=== PATIENT | female | born 1950 | race Caucasian/White ===

== ENCOUNTER 2017-06-23 20:09 | Emergency (ER) | payer MEDICARE ==
[2017-06-23 21:46] LABS: BASO # 0.1 10^3/uL (0.0-0.2); BASO % 0.7 % (0.0-1.0); EOS # 0.1 10^3/uL (0.0-0.50); EOS % 1.6 % (0.0-3.0); HEMATOCRIT 44.7 % (36.0-47.0); HEMOGLOBIN 15.6 g/dl (12.0-16.0); IMMATURE GRANULOCYTE % 0.2 % (0-3.0); LYMPH # 1.8 10^3/uL (1.5-4.5); LYMPH % 20.4 % (24.0-44.0); MEAN CORPUSCULAR HEMOGLOBIN 31.6 pg (27.0-33.0); MEAN CORPUSCULAR HGB CONC 34.9 g/dl (32.0-36.5); MEAN CORPUSCULAR VOLUME 90.7 fl (80.0-96.0); MONO # 0.6 10^3/uL (0.0-0.8); NEUTROPHILS # 6.3 10^3/uL (1.8-7.7); NEUTROPHILS % 70.1 % (36.0-66.0); PLATELET COUNT, AUTOMATED 199 10^3/uL (150-450); RED BLOOD COUNT 4.93 10^6/uL (4.00-5.40); RED CELL DISTRIBUTION WIDTH 12.8 % (11.5-14.5)
[2017-06-23 22:07] LABS: ANION GAP 7 MEQ/L (8-16); BLOOD UREA NITROGEN 21 MG/DL (7-18); CALCIUM LEVEL 9.2 MG/DL (8.8-10.2); CARBON DIOXIDE LEVEL 29 MEQ/L (21-32); CHLORIDE LEVEL 105 MEQ/L (98-107); CREATININE FOR GFR 0.78 MG/DL (0.55-1.30); GLOMERULAR FILTRATION RATE > 60.0 (>45); GLUCOSE, FASTING 97 MG/DL (70-100); POTASSIUM SERUM 3.7 MEQ/L (3.5-5.1); SODIUM LEVEL 141 MEQ/L (136-145)
[2017-06-23] MEDS ORDERED: ISOVUE-370 76% 100ML VIAL (Q9967) As Ordered (22:36)
== END 2017-06-24 02:29 | disposition home or self-care (01) ==
LOC: M ED 06-24 02:29
DX: R07.89 Other chest pain (principal); N28.1 Cyst of kidney, acquired; K76.89 Other specified diseases of liver; K86.2 Cyst of pancreas; R91.1 Solitary pulmonary nodule; E11.9 Type 2 diabetes mellitus without complications; I10 Essential (primary) hypertension; Z79.899 Other long term (current) drug therapy; Z79.84 Long term (current) use of oral hypoglycemic drugs; Z88.2 Allergy status to sulfonamides
CPT/HCPCS: Q9967

== ENCOUNTER → 2017-07-19 | Outpatient (CLI) | payer MEDICARE ==
[~2017-07-19] MED LIST: PROHANCE 279.3MG/ML 15ML VIAL (A9576) As Ordered; PROHANCE 279.3MG/ML 5ML VIAL (A9576) As Ordered
== END ==
LOC: M RAD 08:43
DX: D37.8 Neoplasm of uncertain behavior of other specified digestive organs (principal)
CPT/HCPCS: A9576

== ENCOUNTER → 2019-08-28 | Outpatient (CLI) | payer MEDICARE ==
[~2019-08-28] MED LIST changes: +ALTA1CAP4 PO; +ISOVUE-370 76% 100ML VIAL As Ordered ONE; +METF500T13 PO; +METO1TAB7 PO; -PROHANCE 279.3MG/ML 15ML VIAL (A9576) As Ordered; -PROHANCE 279.3MG/ML 5ML VIAL (A9576) As Ordered; +SIMV40TA20 PO
--- NOTE | 2019-08-28 15:23 | REP ---
CT CHEST WITH IV CONTRAST: TECHNIQUE: Axial contrast enhanced images from the thoracic inlet to the upper abdomen using 100 mL Isovue-370 intravenous contrast material with multiplanar reformations. COMPARISON: 06/30/2018 and . Once again there are two small linear scars along the right major fissure just below the level of the right hilum. No new suspicious nodule is seen bilaterally. Chronic atelectatic change is seen in the left lower lobe due to a very large hiatal hernia. There is no evidence of mediastinal, hilar or chest wall lymphadenopathy. There is no pleural or pericardial effusion. The heart is normal in size. Thoracic aorta is normal in caliber with no aneurysm or dissection. Multiple innumerable cysts are seen throughout the liver and visualized kidneys. There is a small cyst in the body of the pancreas anteriorly 7 mm in diameter since the prior CT of the abdomen 06/24/2017. There are diffuse degenerative changes of the spine. IMPRESSION: Two stable linear scars along the right major fissure with no suspicious nodular opacity in either lung. Chronic atelectatic change left lower lobe due to very large hiatal hernia. Multiple innumerable liver and renal cysts. Small stable cyst anterior body of the pancreas. Electronically Signed by Josue Walker MD 08/28/2019 04:24 P
== END ==
LOC: M RAD 14:06
PROVIDERS: ATTEND Family Medicine
DX: R91.1 Solitary pulmonary nodule (principal); R06.02 Shortness of breath
CPT/HCPCS: 71260; Q9967

== ENCOUNTER → 2019-12-19 | Outpatient (CLI) | payer MEDICARE ==
[~2019-12-19] MED LIST changes: -ISOVUE-370 76% 100ML VIAL As Ordered ONE; +METHACHOLINE KIT (J7674) INH ONE
--- NOTE | 2019-12-28 11:48 | PFTRPT ---
Height: 60.00 Inches Weight: 136.00 Lbs BSA: 1.58 Diagnosis: R06.00 DATE: 12/19/2019 ORDERED BY: Humberto Dorsey M.D. QUALITY: Study of excellent technical quality. PROCEDURE: Under protocol, methacholine was administered. With a dose of 2.5 mg or 13.875 CDUs, a 22% decline of the FEV1 was noted. PC of 1.86 is significant. Flow rates did return to baseline post-bronchodilator administration. IMPRESSION: Positive methacholine challenge study. MTDD
== END ==
LOC: M CARPUL 13:33
PROVIDERS: ATTEND Physician Assistant
DX: R06.00 Dyspnea, unspecified (principal)
CPT/HCPCS: 94070; 95070; J7674

== ENCOUNTER → 2020-07-29 | Outpatient (CLI) | payer MEDICARE ==
[~2020-07-29] MED LIST changes: -METHACHOLINE KIT (J7674) INH ONE; +PROHANCE 279.3MG/ML 15ML VIAL As Ordered ONE
--- NOTE | 2020-07-29 13:09 | REP ---
INDICATION: NEOPLASM OF UNCERTAIN BEHAVIOR LIVER. COMPARISON: 08/04/2018. TECHNIQUE: Multiple sequences obtained in the axial coronal planes prior to and following the intravenous administration of 11 mL ProHance. FINDINGS: Once again there is a large hiatal hernia noted. Multiple innumerable hepatic cysts are again noted. None of these demonstrate suspicious enhancement. The largest is inferiorly in the right lobe, mildly increased in size compared to the prior study, having a maximum diameter of 6.4 cm. The spleen is normal in size with no intrinsic abnormality. The adrenal glands are normal. Two pancreatic cysts are again seen unchanged. These demonstrate no suspicious internal enhancement. One of the cysts in the head of the pancreas and is somewhat exophytic, measuring 1 cm in diameter. The other is a 7 mm cyst in the body of the pancreas. There is no pancreatic duct dilatation. Multiple cysts are again seen throughout both kidneys. Some demonstrate hypointensity on T2 and hyperintensity on T1 consistent with proteinaceous or hemorrhagic cysts. Some of the cysts have mildly increased in size since the prior study. The largest on the right is in the lower pole measuring 2.3 cm in diameter. There is no hydronephrosis bilaterally. No adenopathy or free fluid is seen in the abdomen. The gallbladder is collapsed. There is no biliary dilatation. IMPRESSION: Multiple cysts again seen in the liver, pancreas and kidneys as discussed in detail above. No suspicious enhancing mass. <Electronically signed by Josue Walker > 07/29/20 [id number]
== END ==
LOC: M RAD 11:07
PROVIDERS: ATTEND Nurse Practitioner Family
DX: D37.6 Neoplasm of uncertain behavior of liver, gallbladder and bile ducts (principal)
CPT/HCPCS: 74183; A9576

== ENCOUNTER → 2022-01-05 | Outpatient (CLI) | payer MEDICARE ==
[~2022-01-05] MED LIST changes: -PROHANCE 279.3MG/ML 15ML VIAL As Ordered ONE
== END ==
LOC: M RAD 06:22
PROVIDERS: ATTEND Family Medicine
DX: R10.11 Right upper quadrant pain (principal)

== ENCOUNTER → 2022-01-23 | Outpatient (CLI) | payer MEDICARE ==
[~2022-01-23] MED LIST changes: +PROHANCE 279.3MG/ML 15ML VIAL ONE
== END ==
LOC: M PLAIMG 13:03
PROVIDERS: ATTEND Family Medicine
DX: D37.6 Neoplasm of uncertain behavior of liver, gallbladder and bile ducts (principal)
CPT/HCPCS: 74183; A9576

== ENCOUNTER 2023-09-17 11:08 | Inpatient (IN) | payer MEDICARE ==
[~2023-09-17] VITALS: Ht 154.9 cm; Wt 60.2 kg
[~2023-09-17 11:08] MED LIST changes: -PROHANCE 279.3MG/ML 15ML VIAL ONE
[2023-09-17 14:08] LABS: BASO % 0.5 % (0.0-1.0); EOS % 0.5 % (0.0-3.0); HEMATOCRIT 48.4 % (36.0-47.0); HEMOGLOBIN 17.1 g/dl (12.0-15.5); LYMPH # 1.5 10^3/uL (1.5-5.0); LYMPH % 17.2 % (24.0-44.0); MEAN CORPUSCULAR HEMOGLOBIN 31.8 pg (27.0-33.0); MEAN CORPUSCULAR HGB CONC 35.3 g/dl (32.0-36.5); MEAN CORPUSCULAR VOLUME 90.1 fl (80.0-96.0); MONO # 0.7 10^3/uL (0.0-0.8); MONO % 7.6 % (2.0-8.0); NEUTROPHILS # 6.5 10^3/uL (1.5-8.5); NEUTROPHILS % 73.9 % (36.0-66.0); PLATELET COUNT, AUTOMATED 276 10^3/uL (150-450); RED BLOOD COUNT 5.37 10^6/uL (4.00-5.40); WHITE BLOOD COUNT 8.8 10^3/uL (4.0-10.0)
[2023-09-17 14:34] LABS: LIPASE 55 U/L (12-53)
[2023-09-17 14:37] LABS: ALBUMIN 3.9 G/DL (3.2-5.2); ALKALINE PHOSPHATASE 93 U/L (46-116); ALT/SGPT 29 U/L (7.0-40); AST/SGOT 16 U/L (<34); BILIRUBIN,DIRECT 0.4 MG/DL (<0.4); BILIRUBIN,TOTAL 1.4 MG/DL (0.3-1.2); TOTAL PROTEIN 6.8 G/DL (5.7-8.2)
[2023-09-17] MEDS ORDERED: ISOVUE-370 76% 100ML VIAL As Ordered ONE (14:38)
[2023-09-17] MEDS: NS 1,000 ML IV ONE (14:47)
[2023-09-17] MEDS: GASTROGRAFIN SOLUTION 30ML PO SCH (14:47)
[2023-09-17 18:08] LABS: C REACTIVE PROTEIN QUANTITATIV < 0.40 MG/DL (<1.0)
[2023-09-17 18:13] LABS: ERYTHROCYTE SEDIMENTATION RATE 4 mm/hr (0-30)
[2023-09-17] MEDS: NS 1,000 ML IV SCH (18:13)
[2023-09-17] MEDS: ACETAMINOPHEN *IV* 1,000 MG in IV 1 EA IV ONE (19:35)
[2023-09-17] MEDS: PANTOPRAZOLE 40MG VIAL IV ONE (20:19)
[2023-09-17] MEDS ORDERED: MORPHINE 2 MG/ML 1ML VIAL IV PRN (21:00)
[2023-09-17] MEDS ORDERED: DEXTROSE 50% 50ML SYRINGE IV PRN (21:00)
[2023-09-17] MEDS ORDERED: GLUCAGON INJ 1MG VIAL SC PRN (21:00)
[2023-09-17] MEDS: INSULIN LISPRO (NovoLOG) PER UNIT SC SCH (21:00)
[2023-09-17] MEDS ORDERED: GLUCOSE 4 GM CHEW PO PRN (21:00)
[2023-09-17] MEDS ORDERED: ONDANSETRON 4MG 2ML VIAL IV PRN (21:00)
[2023-09-17] MEDS ORDERED: CHEL50TA2 PO (21:03)
[2023-09-17] MEDS ORDERED: VIBE75TA PO (21:03)
[2023-09-17] MEDS ORDERED: FAMO1TAB11 PO (21:03)
[2023-09-17] MEDS ORDERED: CALC500C16 PO (21:03)
[2023-09-17] MEDS ORDERED: ASPI81TA26 PO (21:03)
[2023-09-17] MEDS ORDERED: ATOR80TA59 PO (21:03)
[2023-09-17] MEDS ORDERED: TRIA37.5 PO (21:03)
[2023-09-17] MEDS ORDERED: ARNU1INH INH (21:03)
[2023-09-17] MEDS ORDERED: VITA100093 PO (21:03)
[2023-09-17] MEDS ORDERED: ALLE180T33 PO (21:03)
[2023-09-17] MEDS ORDERED: RAMI10CA64 PO (21:03)
[2023-09-17] MEDS ORDERED: HOME MED LIST COMPLETE! XX SCH (21:10)
[2023-09-17] MEDS: POTASSIUM CHLORIDE 10MEQ SR TABLET PO ONE (21:24)
[2023-09-17] MEDS: KCL 20MEQ in NS 1000ML 1,000 ML IV SCH (21:24)
[2023-09-17] MEDS: CIPROFLOXACIN 400 MG in IV 1 EA IV SCH (21:25)
[2023-09-17] MEDS: FEXOFENADINE 60MG TAB PO SCH (23:16)
[2023-09-17 23:35] VITALS: BP 144/80; TEMP 97.5; O2SAT 97
[2023-09-18] MEDS: metroNIDAZOLE 500 MG in IV 1 EA IV SCH (00:03)
[2023-09-18] MEDS: ramipriL 5 MG CAP PO SCH (00:03)
[2023-09-18 04:58] VITALS: BP 125/62; TEMP 97.2; O2SAT 97
[2023-09-18 06:15] LABS: HEMATOCRIT 40.4 % (36.0-47.0); MEAN CORPUSCULAR HEMOGLOBIN 31.8 pg (27.0-33.0); MEAN CORPUSCULAR HGB CONC 34.9 g/dl (32.0-36.5); PLATELET COUNT, AUTOMATED 191 10^3/uL (150-450); RED BLOOD COUNT 4.44 10^6/uL (4.00-5.40); WHITE BLOOD COUNT 7.1 10^3/uL (4.0-10.0)
[2023-09-18 06:16] LABS: HEMOGLOBIN 14.1 g/dl (12.0-15.5)
[2023-09-18 06:36] LABS: BLOOD UREA NITROGEN 10 MG/DL (9-23); CALCIUM LEVEL 8.4 MG/DL (8.3-10.6); CARBON DIOXIDE LEVEL 24 MMOL/L (20-31); CHLORIDE LEVEL 104 MMOL/L (98-107); CREATININE FOR GFR 0.64 MG/DL (0.55-1.30); GLOMERULAR FILTRATION RATE > 60.0 (>39); GLUCOSE, FASTING 81 MG/DL (74-106); MAGNESIUM LEVEL 1.6 MG/DL (1.8-2.4); SODIUM LEVEL 137 MMOL/L (136-145)
[2023-09-18] MEDS: INSULIN LISPRO (NovoLOG) PER UNIT SC SCH (07:30)
[2023-09-18] MEDS: MAG SULF 1GM/100ML (MAG RUN) 1 GM in IV 1 EA IV ONE (08:05)
[2023-09-18] MEDS: NS 1,000 ML IV SCH (08:05)
[2023-09-18] MEDS: METOPROLOL SUCC (TopROL XL) 50MG **XL** TAB PO SCH (09:01)
[2023-09-18] MEDS: ATORVASTATIN 20 MG TAB PO SCH (09:01)
[2023-09-18 10:00] VITALS: BP 131/69; TEMP 97.9; O2SAT 95
[2023-09-18] MEDS: POLYETHYLENE GLYCOL (MIRALAX) 238GM BOTTLE PO ONE ×2 (13:05→17:28)
[2023-09-18 14:11] VITALS: BP 131/70; TEMP 97.9; O2SAT 97
[2023-09-18] MEDS ORDERED: FAMOTIDINE 20 MG TAB PO SCH (15:00)
[2023-09-18] MEDS: FAMOTIDINE 20 MG TAB PO SCH (20:48)
[2023-09-18 21:00] VITALS: BP 154/71; TEMP 97.7; O2SAT 97
[2023-09-19] VITALS (10 sets, daily range): BP systolic 134–159; BP diastolic 73–84; TEMP 96.8–97.9; O2SAT 93–99
[2023-09-19 06:25] LABS: RED BLOOD COUNT 4.31 10^6/uL (4.00-5.40); WHITE BLOOD COUNT 5.7 10^3/uL (4.0-10.0)
[2023-09-19 06:26] LABS: HEMATOCRIT 40.6 % (36.0-47.0); HEMOGLOBIN 13.7 g/dl (12.0-15.5); MEAN CORPUSCULAR HEMOGLOBIN 31.8 pg (27.0-33.0); MEAN CORPUSCULAR HGB CONC 33.7 g/dl (32.0-36.5); MEAN CORPUSCULAR VOLUME 94.2 fl (80.0-96.0); PLATELET COUNT, AUTOMATED 166 10^3/uL (150-450)
[2023-09-19 06:57] LABS: ALBUMIN 3.1 G/DL (3.2-5.2); ALKALINE PHOSPHATASE 68 U/L (46-116); ALT/SGPT 21 U/L (7.0-40); AST/SGOT 13 U/L (<34); BILIRUBIN,TOTAL 0.7 MG/DL (0.3-1.2); BLOOD UREA NITROGEN 6 MG/DL (9-23); CALCIUM LEVEL 8.1 MG/DL (8.3-10.6); CARBON DIOXIDE LEVEL 24 MMOL/L (20-31); CHLORIDE LEVEL 109 MMOL/L (98-107); CREATININE FOR GFR 0.63 MG/DL (0.55-1.30); GLOMERULAR FILTRATION RATE > 60.0 (>39); GLUCOSE, FASTING 82 MG/DL (74-106); POTASSIUM SERUM 3.8 MMOL/L (3.5-5.1); SODIUM LEVEL 139 MMOL/L (136-145)
[2023-09-19] MEDS ORDERED: propofoL 200 MG/20 ML VIAL As Ordered ONE (08:19)
[2023-09-19] MEDS ORDERED: LIDOCAINE 2% 100MG/5ML SDV (FOR ANES.) As Ordered ONE (08:19)
[2023-09-19] MEDS ORDERED: GLYCOPYRROLATE INJ 0.2 MG/ML 2 ML VIAL As Ordered ONE (08:48)
[2023-09-19] MEDS ORDERED: PHENYLephrine 500MCG 5ML (100MCG/ML) SYRINGE As Ordered ONE (09:03)
[2023-09-19] MEDS: LR 1,000 ML IV SCH (09:20)
[2023-09-19] MEDS ORDERED: ONDANSETRON 4MG 2ML VIAL IV PRN (09:20)
[2023-09-19] MEDS: ACETAMINOPHEN TAB 650MG DOSE (2X325MG) PO PRN (15:59)
[2023-09-20] VITALS: BP 141/79; TEMP 98.1; O2SAT 99
[2023-09-20 04:00] VITALS: BP 139/78; TEMP 98.1; O2SAT 98
[2023-09-20 06:18] LABS: HEMATOCRIT 40.8 % (36.0-47.0); HEMOGLOBIN 13.8 g/dl (12.0-15.5); MEAN CORPUSCULAR HEMOGLOBIN 31.9 pg (27.0-33.0); MEAN CORPUSCULAR HGB CONC 33.8 g/dl (32.0-36.5); MEAN CORPUSCULAR VOLUME 94.2 fl (80.0-96.0); PLATELET COUNT, AUTOMATED 170 10^3/uL (150-450); RED BLOOD COUNT 4.33 10^6/uL (4.00-5.40); WHITE BLOOD COUNT 6.7 10^3/uL (4.0-10.0)
[2023-09-20 06:50] LABS: ALBUMIN 2.9 G/DL (3.2-5.2); ALKALINE PHOSPHATASE 65 U/L (46-116); ALT/SGPT 24 U/L (7.0-40); AST/SGOT 14 U/L (<34); BILIRUBIN,TOTAL 0.5 MG/DL (0.3-1.2); BLOOD UREA NITROGEN 9 MG/DL (9-23); CALCIUM LEVEL 8.3 MG/DL (8.3-10.6); CARBON DIOXIDE LEVEL 27 MMOL/L (20-31); CHLORIDE LEVEL 110 MMOL/L (98-107); CREATININE FOR GFR 0.68 MG/DL (0.55-1.30); GLOMERULAR FILTRATION RATE > 60.0 (>39); GLUCOSE, FASTING 94 MG/DL (74-106); POTASSIUM SERUM 4.5 MMOL/L (3.5-5.1); SODIUM LEVEL 139 MMOL/L (136-145); TOTAL PROTEIN 4.8 G/DL (5.7-8.2)
[2023-09-20 07:37] VITALS: BP 143/77
[2023-09-20 07:59] VITALS: BP 145/75; TEMP 97.5; O2SAT 97
[2023-09-20] MEDS ORDERED: ACET1TAB55 PO (11:04)
== END 2023-09-20 13:09 | disposition home or self-care (01) | DRG 394 ==
LOC: M ED 11:08 → M ED INP 20:29 → OBSVTOIN 21:06 → M MSPAV 23:30
PROVIDERS: ADMIT Preventive Medicine Undersea and Hyperbaric Medicine; ATTEND Internal Medicine
PROC: 0DBN8ZX Excision of Sigmoid Colon, Via Natural or Artificial Opening Endoscopic, Diagnostic (ICD-10-PCS; principal; 2023-09-19 08:30)
DX: K55.039 Acute (reversible) ischemia of large intestine, extent unspecified (principal); K92.2 Gastrointestinal hemorrhage, unspecified; K86.2 Cyst of pancreas; E87.1 Hypo-osmolality and hyponatremia; K57.30 Diverticulosis of large intestine without perforation or abscess without bleeding; I10 Essential (primary) hypertension; E78.5 Hyperlipidemia, unspecified; E83.42 Hypomagnesemia; E87.6 Hypokalemia; E11.9 Type 2 diabetes mellitus without complications; N28.1 Cyst of kidney, acquired; K76.89 Other specified diseases of liver; D12.5 Benign neoplasm of sigmoid colon; Z88.2 Allergy status to sulfonamides; Z79.899 Other long term (current) drug therapy; E86.0 Dehydration